=== PATIENT | female | born 2000 | race Caucasian/White ===

== ENCOUNTER 2019-08-27 11:57 | Outpatient (REF) | payer BC, SELFPAY ==
--- NOTE | 2019-08-27 11:00 | PAPFT_PTH ---
PATIENT: Gilda Pinzon LOC: [facility] U#:[id number] AGE/SX: 19/F ROOM: RE08/27/[address]: JUAN ALBERTO Jacob : 2000 BED: DIS: 08/27/2019 SPEC #: [id number] RECD: 08/27/19 13:03 STATUS: SERGIO SANTIZO #: [id number] KIMMY: 08/27/19 11:[address]: Cookie Han DEPT: [facility] Cytology RECD BY: Heide Rodriguez Tissues: 1 - CX/ENDOCX FOR PAP SMEARS Procedures: PAP THIN PREP/UVM Screening Comments: [id number] (CHLAMYDIA/GC)
[2019-08-28 13:46] LABS: Chlamydia Result Negative; GC Result Negative; Specimen Description SEE COMMENTS
== END 2019-08-27 12:17 ==
LOC: LBN 11:57
PROVIDERS: PCP Nurse Practitioner Family; Visit Provider Nurse Practitioner Family
DX: Z11.3 Encounter for screening for infections with a predominantly sexual mode of transmission (principal); Z12.4 Encounter for screening for malignant neoplasm of cervix; Z11.51 Encounter for screening for human papillomavirus (HPV)
CPT/HCPCS: 87491; 87591; 88142

== ENCOUNTER 2020-08-15 17:01 | Emergency (ER) | payer MEDICAID, SELFPAY ==
--- NOTE | 2020-08-15 17:02 | W.ED.GENAD ---
Discharge Plan Disposition Patient Disposition: HOME Condition: Good Discharge Details Clinical Impression: Constipation, Hypokalemia Primary Care Provider: Cookie Han ED Provider: Siomara Dunbar Home Meds and New Rx's Prescriptions: Continued montelukast 10 mg tablet 10 mg PO QHS Qty: 90 RF: 4 fluticasone propionate [Allergy Relief (fluticasone)] 50 mcg/actuation spray,suspension 2 spray JAY DAILY PRN (Reason: allergy symptoms) Qty: 19.8 RF: 4 Nexplanon 68 mg implant 1 implant SBD ONCE RF: 0 cholecalciferol (vitamin D3) 1,000 unit capsule 1,000 unit PO DAILY Qty: 90 RF: 4 albuterol sulfate [ProAir HFA] 90 mcg/actuation HFA aerosol inhaler 2 puff Inhalation Q4H PRN PRN (Reason: shortness of breath or wheezing) Qty: 18 RF: 4 Flovent HFA 12 GM HFA aerosol inhaler 2 puff Inhalation BID Qty: 1 RF: 12 hydroxyzine HCl 25 mg tablet 25 - 50 mg PO TID PRN (Reason: anxiety) Qty: 90 RF: 4 sertraline 100 mg tablet 100 mg PO DAILY Qty: 90 RF: 4 trazodone 50 mg tablet 50 - 100 mg PO HS Qty: 180 RF: 4 loratadine 10 mg tablet 10 mg PO DAILY PRN (Reason: allergy symptoms) Qty: 90 RF: 4 Discharge Instructions Instructions: Constipation (ED), Hypokalemia (ED) Additional Instructions: Encourage water intake. Please use Miralax to help with constipation. Please follow directions listed on bottle. Only use imodium if you develop diarrhea. Please take your medications as prescribed. Please reach out to [facility] human services tomorrow to discuss counseling options [phone]. Please take your second potassium dosing night prior to bed. Please take this with food. Please increase your potassium rich foods, information attached. If you develop increased pain, fever/chills, inability hydrated, blood in your stool or new/worsening symptoms please seek care urgently once again. Otherwise, please follow-up with primary care in 1 week for reevaluation. Referrals: Cookie Han, ABBY [Primary Care Provider] - Medical Decision Making Patient is a 20 year old female, accompanied by mother, with c/c of lower abdominal pain assicoated with constipation.She states her last normal bowel movement was 48 hours ago. Had a soft BM at 0100 today. States she then took imodium. Reports she often suffers from diarrhea and uses Imodium for this. However, she denies diarrhea today. She denies any fevers or chills. No previous abdominal surgeries. Denies any blood in her stool. Denies any vaginal discharge. Denies any dysuria, increased frequency urgency of urination. Reports otherwise she is feeling quite anxious. She reports that the change in bowel habits seems to have aggravated her chronic anxiety. This is G not using her anxiety medications today. She reports that each time she tries to have a bowel movement, she has a anxiety attack. On exam, patient is resting comfortably. She does intermittently become quite anxious and can be tearful when discussing her bowel habits. No CVA tenderness. Her abdomen is benign. No tenderness elicited with palpation. Labs reviewed. Significant for hypokalemia potassium of 3.1. We will replenish this orally. She has had minimal intake today secondary to her anxiety, will give 20 mg now and sent home with another 20 to be taken at home. Patient has mild leukocytosis white count of 11. Her abdomen is not consistent with any active infection such as appendicitis, diverticuliti. Her pain is not consistent with ovarian torsion. Very generalized low central pain inconsistent with gynecologic issue. Patient I discussed the home regimen. We also discussed her anxiety. I feel that treatment more aggressively for her anxiety would be most appropriate as it seems to be what is driving her presentation here today. She does not see a counselor currently. I have referred her to [facility] and asked that she call them tomorrow to discuss counseling options. In regard to bowel regimen, I did advise that she not try to medicate too quickly and allow things to take her course. I did encourage water intake as this may be playing into why she feels constipated at this point. We will discuss appropriate usage of medications and when to use these. Return precautions were discussed. Advise follow-up with primary care if not improved over the next week. All of her questions and concerns were addressed and she is agreement this plan. HPI General Mode of arrival: ambulatory. Date/Time Provider Initiated Documentation: 08/15/20 17:02. Limitations to Documentation: no limitations. Information obtained by: patient, family (mother) and RN notes reviewed. History of Present Illness 20 year old F presents to the emergency department with the chief complaint of constipation, described as moderate and similar to prior episodes, with intensity rated at 5. Quality is described as aching, and is localized to the abdomen. Patient reports no radiation. Patient started experiencing this hour(s) (started at 0100 today) and it has been constant. No relieving factors improve symptom(s), No exacerbating factors reported . Patient notes other (anxiety); denies chest pain, diaphoresis, fever/chills, loss of appetite, nausea/vomiting and rash. Patient did receive the following treatments prior to arrival, other (immodium) Related Data Home Medications Medication Instructions Recorded Confirmed Flovent HFA 2 puff INHALATION BID #1 inhaler 05/28/17 01/11/20 cholecalciferol (vitamin D3) 25 1,000 unit PO DAILY #90 cap 08/25/18 01/11/20 mcg (1,000 unit) capsule albuterol sulfate 90 mcg/actuation 2 puff INHALATION Q4H PRN PRN #18 08/28/18 01/11/20 aerosol inhaler gm hydroxyzine HCl 25 mg tablet 25 - 50 mg PO TID PRN #90 tab 08/25/19 08/15/20 etonogestrel 68 mg subdermal 1 implant SBD ONCE each 08/27/19 01/11/20 implant fluticasone propionate 50 2 spray JAY DAILY PRN #19.8 ml 08/27/19 01/11/20 mcg/actuation nasal spray,suspension montelukast 10 mg tablet 10 mg PO QHS #90 tab 08/27/19 08/15/20 sertraline 100 mg tablet 100 mg PO DAILY #90 tab 11/26/19 08/15/20 trazodone 50 mg tablet 50 - 100 mg PO HS #180 tab 04/13/20 08/15/20 loratadine 10 mg tablet 10 mg PO DAILY PRN #90 tab 05/30/20 08/15/20 Previous Rx's Medication Instructions Recorded cholecalciferol (vitamin D3) 25 1,000 unit PO DAILY #90 cap 08/25/18 mcg (1,000 unit) capsule albuterol sulfate 90 mcg/actuation 2 puff INHALATION Q4H PRN PRN #18 08/28/18 aerosol inhaler gm hydroxyzine HCl 25 mg tablet 25 - 50 mg PO TID PRN #90 tab 08/25/19 fluticasone propionate 50 2 spray JAY DAILY PRN #19.8 ml 08/27/19 mcg/actuation nasal spray,suspension montelukast 10 mg tablet 10 mg PO QHS #90 tab 08/27/19 sertraline 100 mg tablet 100 mg PO DAILY #90 tab 11/26/19 trazodone 50 mg tablet 50 - 100 mg PO HS #180 tab 04/13/20 loratadine 10 mg tablet 10 mg PO DAILY PRN #90 tab 05/30/20 Allergies Allergy/AdvReac Type Severity Reaction Status Date / Time No Known Allergies Allergy Verified 08/15/20 17:09 Review of Systems Constitutional Constitutional: Reports as per HPI, Denies chills, Denies fatigue, Denies fever(s) and Denies headache(s) ENT Ears, Nose, Mouth, and Throat: Denies headache(s) Cardiovascular Cardiovascular: Reports as per HPI, Denies chest pain and Denies dyspnea Respiratory Respiratory: Reports as per HPI, Denies cough and Denies dyspnea Gastrointestinal Gastrointestinal: Reports as per HPI Musculoskeletal Musculoskeletal: Reports as per HPI and Denies back pain Integumentary/Breasts Skin/Breast: Reports as per HPI and Denies rash Neurologic Neurologic: Reports as per HPI and Denies headache(s) Psychiatric Psychiatric: Reports anxiety Endocrine Endocrine: Denies fatigue [facility] Medical History (Updated 08/15/20 @ 18:09 by JOAO Crandall) Allergic rhinitis Depressive disorder Generalized anxiety disorder GERD (gastroesophageal reflux disease) Mild persistent asthma Nexplanon in place Inserted 08/05/19 into left upper arm Surgical History S/P wisdom tooth extraction (~2017) Family History Mother Depression Hyperlipidemia GERD (gastroesophageal reflux disease) Asthma Anxiety Father Depression Anxiety Brother Depression Anxiety ADHD Maternal Grandfather , of unknown type of cancer Neoplasm Alcohol abuse Maternal Grandmother Alcohol abuse Asthma Depression Anxiety Hyperlipidemia Heart disease Paternal Grandfather No problems noted. Paternal Grandmother No problems noted. Social History Smoking/Tobacco Use Status: Former Tobacco Use Second Hand Exposure: Yes Alcohol Intake: never Drug use: Socially Substance use type: marijuana Caregiver/Support person: Yes Household members: significant other and family Housing: house Communication Needs: None Do you need help understanding health information?: Rarely current occupation: [employer] Pets and animals: Yes Pets and animals: cat(s), dog(s) and farm animals Sexually active: Yes Do you think of yourself as: bisexual Current gender identity: female What is your relationship status?: refused to answer How often do you talk on the phone with friends or family?: twice per week How often do you get together with friends or relatives?: never How often do you attend episcopalian or moravian services?: decline to answer Do you belong to any clubs or organized social groups?: no Panel score (0-1 are the most socially isolated patients): 0 What type of physical activity do you participate in: none Guadlaupe/Roman Catholic: None Special guadalupe needs: No Seatbelt use: always Helmet use: Yes Helmet use: always Drive intox or ride w/intox 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 Do you feel safe at home: Yes Do you feel safe in your relationship?: Yes Female Reproductive History Menstrual control method: implanted (Nexplanon implant left arm inserted 08/05/19) History History 0 Para Hx # Term Pregnancies Multiple births Hx # Pregnancies Ectopic pregnancies AB induced Hx Number of Living Children AB spontaneous Exam Const General: cooperative, healthy appearing, comfortable, no acute distress, well developed and anxious Nutritional Appearance: average body habitus and well nourished Orientation: alert and awake HENNE Head: normal to inspection Mouth: moist mucous membranes Resp Effort & Inspection: normal respiratory effort, able to speak in complete sentences and no respiratory distress Auscultation: clear to auscultation bilaterally, no rales, no rhonchi and no wheezes Cardio Rate: regular rate Rhythm: regular rhythm Heart Sounds: S1 normal and S2 normal GI Inspection: normal to inspection Palpation: soft, no hepatosplenomegaly, no guarding, no hernias, no masses and nontender Percussion: normal to percussion Auscultation: normal bowel sounds Back/Spine/Pelvis Back: no CVA tenderness Skin General skin exam: no rashes or lesions noted Trauma: no lacerations or abrasions Neuro General: patient alert and patient awake Cognition: normal cognition Speech: speech normal Gait: normal gait Psych Appearance: grossly normal and well kempt Mental Status: mental status grossly normal Speech and Movement: speech and movement normal Mood: anxious mood (tearing)
[2020-08-15 17:03] VITALS: BP 130/86; PULSE 95; RESP 16; TEMP 36.6; O2SAT 98
[2020-08-15 17:31] LABS: Abs Immature Grans 0.02 10^3/uL (0.0-0.06); Absolute Basophil Count 0.05 10^3/uL (0.0-0.2); Absolute Eosinophil Count 0.22 10^3/uL (0.0-0.7); Absolute Monocyte Count 0.78 10^3/uL (0.1-0.8); Absolute Neutrophil Count 7.78 10^3/uL (1.2-6.7); Basophils % 0.4; Eosinophils % 1.9; HCT 46.3 % (36.0-46.0); HGB 15.8 g/dL (11.2-15.7); Immature Grans % 0.2; Lymphocytes % 24.7; MCH 31.2 pg (27.0-33.0); MCHC 34.1 % (32.0-36.0); MCV 91.5 fL (80-95); MPV 10.2 fL (8.0-11.0); Monocytes % 6.6; Neutrophils % 66.2; Nucleated RBC 0 %; Platelet Count 298 10^3/uL (130-400); RBC 5.06 10^6/uL (3.93-5.22); RDW 12.7 % (11.7-14.6); RDW-SD 42.8 fL; WBC 11.75 10^3/uL (4.4-10.8)
[2020-08-15] MEDS: LORazepam 2 MG/ML VIAL 0.5 MG IVP ×2 (17:35→18:17)
[2020-08-15] MEDS: Lactated Ringers 1,000 ML 1000 ML IV (17:35)
[2020-08-15 17:53] LABS: ALT 20 U/L (14-59); AST 14 U/L (15-37); Albumin 4.4 g/dL (3.4-5.0); Alkaline Phosphatase 89 U/L (46-116); Anion Gap 10.2 mmol/L (3-11); BUN 8 mg/dL (7-18); Bilirubin, Total 0.4 mg/dL (0.2-1.0); CO2 25.8 mmol/L (21.0-32.0); CREATININE 0.75 mg/dL (0.55-1.02); Calcium 9.2 mg/dL (8.5-10.1); Chloride 103 mmol/L (98-107); Glucose 96 mg/dL (74-106); Potassium 3.1 mmol/L (3.5-5.1); Sodium 139 mmol/L (136-145); Total Protein 7.9 g/dL (6.4-8.2)
[2020-08-15] MEDS: Potassium Chloride 20 MEQ TABCR 40 MEQ PO (18:16)
[2020-08-15] MEDS: Normal Saline Flush 10 ML SYR IVP (18:17)
[2020-08-15 18:26] LABS: Bilirubin Negative (Negative); Blood Negative (Negative); Clarity Clear (Clear); Glucose Negative (Negative); Ketones Trace mg/dL (Negative); Leukocyte Esterase Negative (Negative); Nitrite Negative (Negative); Urobilinogen 0.2 EU/dL (Up TO 0.2)
[2020-08-15 18:28] VITALS: BP 124/72; PULSE 84; RESP 20; TEMP 37; O2SAT 99
[2020-08-15 18:35] VITALS: BP 124/72; PULSE 84; RESP 20; TEMP 37; O2SAT 99
== END 2020-08-15 18:40 | disposition home or self-care (01) ==
PROVIDERS: Emergency Provider Physician Assistant; PCP Nurse Practitioner Family
DX: E87.6 Hypokalemia (principal); K59.00 Constipation, unspecified; F41.8 Other specified anxiety disorders
CPT/HCPCS: 36415; 80053; 81025; 96361; 96374; 96376; 99284; 81003; 85025; J2060

== ENCOUNTER 2021-08-23 16:33 | Outpatient (REF) | payer MEDICAID, SELFPAY ==
[2021-08-25 16:01] LABS: Chlamydia Result Negative (Negative); GC Result Negative (Negative)
== END 2021-08-23 16:34 | disposition home or self-care (01) ==
LOC: LBN 16:33
PROVIDERS: PCP Nurse Practitioner Family; Visit Provider Obstetrics & Gynecology Gynecology
DX: Z11.3 Encounter for screening for infections with a predominantly sexual mode of transmission (principal)
CPT/HCPCS: 87491; 87591

== ENCOUNTER 2022-08-20 06:21 | Day surgery (SDC) | payer MEDICAID, SELFPAY ==
[2022-08-20] VITALS (9 sets, daily range): BP systolic 112–125; BP diastolic 67–91; PULSE 69–96; RESP 14–18; TEMP 36.3–37.8; O2SAT 98–100; BMI 27.1
--- NOTE | 2022-08-20 06:23 | W.ANESPRE ---
General Info Date of Service Date Performed: 08/20/22 Height: 5 ft 0.5 in Weight: 63.957 kg Body Mass Index (BMI): 27.1 Surgical Procedure: Operation Date: 08/20/22 07:40 Proposed Procedure Side Surgeon p Tonsillectomy & Adenoidectomy Jason Rogers MD Meds Allergies and Home Medications Allergies Allergy/AdvReac Type Severity Reaction Status Date / Time No Known Allergies Allergy Verified 08/17/22 11:34 Home Medication Medication Instructions Recorded fluticasone propionate 110 2 puff inhalation BID ##1 05/28/17 mcg/actuation HFA aerosol inhaler (Flovent HFA) fluticasone propionate 50 2 spray intranasal DAILY PRN 08/27/19 mcg/actuation nasal allergy symptoms #19.8 mL spray,suspension (Allergy Relief (fluticasone)) trazodone 50 mg tablet 50 - 100 mg PO HS #180 tabs 04/13/20 hydroxyzine HCl 25 mg tablet 25 - 50 mg PO TID PRN anxiety #90 08/17/20 tabs sertraline 100 mg tablet 100 mg PO DAILY #90 tabs 09/02/20 montelukast 10 mg tablet 10 mg PO QHS #90 tabs 12/14/20 albuterol sulfate 90 mcg/actuation 2 puff inhalation Q4H PRN PRN 03/29/21 aerosol inhaler (ProAir HFA) shortness of breath or wheezing #18 grams levonorgestrel 17.5 mcg/24 hrs 1 device intrauterine ONCE #1 ea 08/23/21 (5yrs) 19.5mg intrauterine device (Kyleena) loratadine 10 mg tablet 10 mg PO DAILY PRN allergy 01/17/22 symptoms #90 tabs inhalational spacing device #1 ea 04/12/22 (BreatheRite MDI Spacer) acetaminophen 500 mg tablet 1,000 mg 08/20/22 (Tylenol Extra Strength) ibuprofen 400 mg tablet 400 mg 08/20/22 Current Visit Medications: Current Medications Generic Name Dose Route Start Last Admin Trade Name Freq PRN Reason Stop Dose Admin Ringer's Solution 1,000 mls @ 80 mls/hr 08/20/22 06:00 IV 09/16/22 23:59 INFUSION OSITO Cefazolin Sodium/Dextrose 2 gm in 50 mls @ 100 mls/hr 08/20/22 06:00 Ancef Duplex IVPB 09/16/22 23:59 PREOP OSITO Tranexamic Acid 640 mg/ Sodium 56.4 mls @ 338.4 mls/hr 08/20/22 06:00 Chloride IVPB 08/20/22 23:59 PREOP OSITO IV Miscellaneous Supplies 1 each 08/20/22 06:00 Iv Access IV 09/16/22 23:59 DIRECTED OSITO Sodium Chloride 0 ml 08/20/22 06:00 Normal Saline Flush 10 Ml Syr IV 09/16/22 23:59 PRN PRN Sodium Chloride 0 ml 08/20/22 06:00 Normal Saline 10 Ml Vial IJ 09/16/22 23:59 DIRECTED PRN Sterile Water 0 ml 08/20/22 06:00 Water,Injection,Sterile 10 Ml Vial IJ 09/16/22 23:59 DIRECTED PRN PFSH Active Problems Active Problems: Problem Status Onset Code Chronic tonsillitis J35.01 Tonsil stone J35.8 Sore throat J02.9 IUD (intrauterine device) in place Z97.5 De Quervain's disease (tenosynovitis) M65.4 Mild persistent asthma J45.30 Allergic rhinitis J30.9 GERD (gastroesophageal reflux disease) K21.9 Depressive disorder F32.9 Generalized anxiety disorder F41.1 Medical History Medical History (Updated 08/20/22 @ 06:51 by Doreen Sheridan) Abnormal uterine bleeding (AUB) 02/28/2021. He is lasting 4 to 5 weeks while using Nexplanon. Rx for combination OCPs x1 month. History of seasonal allergies History of seasonal allergies Surgical History Surgical History S/P wisdom tooth extraction (~2016) Tobacco Smoking/Tobacco Use Status: Never Passive smoking exposure: Yes Second hand exposure: Yes Alcohol Alcohol Intake: never Substance Use Substance use: Current Sobriety Substance use type: former substance user and marijuana Prental History History 0 Para Hx # Term Pregnancies Multiple births Hx # Pregnancies Ectopic pregnancies AB induced Hx Number of Living Children AB spontaneous Vital Signs and Lab Results Vital Signs Most Recent Vital Signs in EMR: Temp Pulse Resp BP Pulse Ox 36.5 C 96 H 16 120/85 98 08/20/22 06:38 08/20/22 06:38 08/20/22 06:38 08/20/22 06:38 08/20/22 06:38 Lab Results Blood Type / Crossmatch: No Data to Display Complete Blood Count: No Data to Display Complete Metabolic Panel: No Data to Display Liver Function Panel: No Data to Display Coagulation Panel: No Data to Display Cardiac Panel: No Data to Display Arterial Blood Gas: No Data to Display Venous Blood Gas: No Data to Display Pancreas Panel: No Data to Display Thyroid Panel: No Data to Display Infectious Disease: No Data to Display Blood Cultures: No Data to Display Toxicology Panel: No Data to Display Panel: No Data to Display Anesthesia Assessment and Plan Anesthesia History Personal History: No History of Anesthesia Complications Family History: No Family History of Anesthesia Complications Exercise Tolerance Exercise Tolerance: Metabolic Equivalents>4 Cardiac & Pulmonary Exam Cardiac Exam: Normal S1/S2 Heart Sounds Pulmonary Exam: Clear Bilateral Breath Sounds Implantable Cardiac Device Does patient have a Pacemaker or an ICD?: No Airway Exam Known Difficult Airway: No Mallampati Class: 2 Mouth Opening: Normal (> 3cm) Thyromental Distance: Greater than 3 cm Neck Range of Motion: Full ROM Neck Circumference: Normal Teeth Condition: Normal Dentition ASA Classification ASA Score: ASA 2 Emergency Case?: No NPO Status NPO Status: NPO Clears >2 hours, Solids >8 hours Status Status: Negative HCG Anesthesia Plan Resuscitation Status: Full Code Anesthesia Technique: General Anesthesia Airway Planned: Endotracheal Tube Monitors Used: Standard Monitors Preoperative Comments:: 22 yo female for T/A. Sig PMHx: GERD, depression/anxiety, asthma (albuterol/flovent), never smoker/EtOH. Denies complications with anesthesia in the past, but that she wakes up crying frequently.
[2022-08-20] MEDS: Lactated Ringers 1,000 ML 80 ML IV (07:15)
[2022-08-20] MEDS: ceFAZolin 2 GM/50 ML BAG IVPB (07:29)
--- NOTE | 2022-08-20 07:48 | TONSIL_PTH ---
PATIENT: Gilda Pinzon LOC: [facility] U#:[id number] AGE/SX: 22/F ROOM: RE08/20/[address]: Jason Rogers MD : 2000 BED: DIS: 08/20/2022 SPEC #: [id number] RECD: 08/20/22 12:23 STATUS: SERGIO REQ #: [id number] KIMMY: 08/20/22 07:[address]: Jason Rogers DEPT: Surgical Specimen RECD BY: Heide Rodriguez ENTERED: 08/20/22 12:24 SP TYPE: TONSIL OTHR DR: JUAN ALBERTO Jacob Tissues: 1 - TONSIL AGE 17 & OVER 2 - TONSIL AGE 17 & OVER Procedures: GROSS AND MICRO LEVEL 3 Comments: [id number]
[2022-08-20] MEDS: Bupivacaine 0.5% Pres-Free W/EPI 30 ML VIAL (07:54)
--- NOTE | 2022-08-20 08:09 | PDOC.DSDIS_ITS ---
Date of service: 08/20/22 Time of Service: 08:10 Discharge Plan Disposition Patient Disposition: HOME Condition: Good Discharge Details Reason For Visit: Tonsillectomy Attending Provider: Jason Rogers Primary Care Provider: Cookie Han Home Meds and New Rx's Prescriptions: No Action fluticasone propionate [Allergy Relief (fluticasone)] 50 mcg/actuation spray,suspension 2 spray JAY DAILY PRN (Reason: allergy symptoms) Qty: 19.8 4RF Rx Instructions: 2 sprays each nostril once a day as needed for allergies Kyleena 17.5 mcg/24 hrs (5 yrs) 19.5 mg intrauterine device 1 device intrauterine ONCE Qty: 1 0RF Label Comments: pt. reports currently in place Rx Instructions: as a single dose (DME) BreatheRite MDI Spacer Spacer See Rx Instructions .Route Qty: 1 2RF Rx Instructions: As directed fluticasone propionate [Flovent HFA] 12 GM HFA aerosol inhaler 2 puff Inhalation BID Qty: 1 trazodone 50 mg tablet 50 - 100 mg PO HS Qty: 180 4RF hydroxyzine HCl 25 mg tablet 25 - 50 mg PO TID PRN (Reason: anxiety) Qty: 90 4RF sertraline 100 mg tablet 100 mg PO DAILY Qty: 90 4RF Rx Instructions: Take 1 tablet once a day montelukast 10 mg tablet 10 mg PO QHS Qty: 90 4RF Rx Instructions: Take 1 tablet once a day albuterol sulfate [ProAir HFA] 90 mcg/actuation HFA aerosol inhaler 2 puff Inhalation Q4H PRN PRN (Reason: shortness of breath or wheezing) Qty: 18 4RF loratadine 10 mg tablet 10 mg PO DAILY PRN (Reason: allergy symptoms) Qty: 90 4RF acetaminophen [Tylenol Extra Strength] 500 mg Tablet 1,000 mg ibuprofen 400 mg Tablet 400 mg Discharge Instructions Stand Alone Forms: ENT-T+A Instr. Peter Referrals: Jason Rogers MD [ [facility] STAFF PHYSICIAN] - (1 month, please call for appointment prior to patient's departure) Discharge Orders Discharge Orders: Discharge Order (Routine); Ordered 08/20/22 Ordered By: Jason Rogers
--- NOTE | 2022-08-20 08:10 | W.PM.OP ---
Date of service: 08/20/22 Time of Service: 08:10 Operative Note Operative Note PRE-OP DIAGNOSIS: Chronic tonsillitis with tonsillolith formation POST-OP DIAGNOSIS: same PROCEDURE: Tonsillectomy SURGEON: Jason Rogers ANESTHESIA TYPE: General LMA/ETT Refer to Anesthesia Record ESTIMATED BLOOD LOSS: 10 PATHOLOGY: other (Tonsils) COMPLICATIONS: None Patient was transported to: PACU Patient's condition: stable Indications: Patient with the above problems. This is proven medically recalcitrant and chronic. Options were explained to the patient regarding further management. She elected to undergo the above procedure. Risks and benefits as well as the operative and postoperative courses were reviewed in detail multiple times. Risks of narcotics were also discussed at length and in detail. H&P was reviewed. There have been no changes. Findings: 3+ tonsils with copious cryptic debris, significant scar issue around the tonsils. Adenoids atrophic and without debris Procedure Description: After obtaining an adequate level of general endotracheal anesthesia the patient was positioned in a supine position and prepped and draped in appropriate fashion. A En Donte mouthgag was carefully introduced into the oral cavity and opened to reveal a soft and hard palate which were examined revealing no evidence of an occult cleft palate. Each tonsil was pulled medially and posteriorly and 0.5% Marcaine with 1 200,000 epinephrine was injected into the submucosal plane around the tonsil. A 12 blade was then used to incise mucosa along the anterior, superior, and posterior edges of the tonsil and then a Kyle elevator used to disarticulate the tonsil from the superior tonsillar fossa. A Rivera blade was then used to strip the tonsil free from the tonsillar fossa down to the inferior pole at which point time a tonsillar snare was used to amputate the tonsil from the tonsillar fossa. Electrocautery suction tip catheter set on 15 W coagulation was then used to achieve relative hemostasis within the tonsillar bed. Once this had been accomplished bilaterally the En-Donte mouthgag was relaxed and reopened revealing no further bleeding. Valsalva was performed revealing no further bleeding. The patient was then awakened and extubated by anesthesia and taken the recovery room in stable condition. I was present throughout the entire case.
[2022-08-20] MEDS: HYDROmorphone 2 MG/ML SYR IVP ×2 (08:36→08:52)
[2022-08-20] MEDS: Normal Saline 10 ML VIAL IJ (08:37)
--- NOTE | 2022-08-20 08:43 | W.ANESPOSTOP ---
Postoperative Evaluation Date, Time and Location Date Performed: 08/20/22 Time Performed: 08:44 Patient Location: PACU Vital Signs Most Recent Imported Vital Signs: Most Recent Vital Signs Temp Pulse Resp BP Pulse Ox 37.1 C 78 14 113/77 100 08/20/22 08:37 08/20/22 08:37 08/20/22 08:37 08/20/22 08:37 08/20/22 08:37 Pain Score Most Recent Pain Score: Most Recent Pain Score Pain Level 6 08/20/22 08:37 Assessment Mental Status: Awake (Alert & Oriented to Patient Baseline) Airway and Respiratory Function: Patent airway with normal (patient baseline) respiratory exam Cardiovascular Function: Hemodynamically Stable Hydration Status: Adequately Hydrated Nausea & Vomiting: No Nausea or Vomiting Pain: Pain is tolerable per patient Peripheral Nerve Block: Patient did not receive a nerve block
[2022-08-20] MEDS: Ibuprofen 600 MG TAB PO (09:22)
== END 2022-08-20 10:35 | disposition home or self-care (01) ==
PROVIDERS: PCP Nurse Practitioner Family; Visit Provider Otolaryngology
PROC: (CPT 42826; principal; 2022-08-20 07:30)
DX: J35.01 Chronic tonsillitis (principal); J35.8 Other chronic diseases of tonsils and adenoids
CPT/HCPCS: 42826; 81025; 88304; J0131; J0690; J1100; J1170; J2405; J2704

== ENCOUNTER 2023-11-02 13:52 | Outpatient (REF) | payer MEDICAID, SELFPAY ==
--- NOTE | 2023-11-02 09:40 | PAPFT_PTH ---
PATIENT: Gilda Pinzon LOC: [facility] U#:[id number] AGE/SX: 23/F ROOM: RE11/02/[address]: Adiel Granados DNP : 2000 BED: DIS: 11/02/2023 SPEC #: [id number] RECD: 11/04/23 17:55 STATUS: SERGIO REDavi #: [id number] KIMMY: 11/02/23 09:[address]: Adiel Gramajo DEPT: [facility] Cytology RECD BY: Heide Rodriguez Tissues: 1 - CX/ENDOCX FOR PAP SMEARS Procedures: PAP THIN PREP/UVM Screening Comments: [id number]
== END 2023-11-02 13:53 | disposition home or self-care (01) ==
LOC: LBN 13:52
PROVIDERS: PCP Nurse Practitioner Family; Visit Provider Nurse Practitioner Family
DX: Z12.4 Encounter for screening for malignant neoplasm of cervix (principal)
CPT/HCPCS: 88142

== ENCOUNTER 2024-07-14 19:00 | Emergency (ER) | payer MEDICAID, SELFPAY ==
[2024-07-14 19:24] VITALS: BP 109/72; PULSE 85; RESP 20; TEMP 36.8; O2SAT 97
--- NOTE | 2024-07-14 19:47 | ED.GENADUL_ITS ---
Discharge Plan Disposition Patient Disposition: Home Condition: Stable Discharge Details Clinical Impression: COVID-19, Constipation Primary Care Provider: Adiel Gramajo ED Provider: Jacklyn Cade Home Meds and New Rx's Prescriptions: New polyethylene glycol 3350 [Miralax] 17 gram/dose powder 17 g PO BID 5 Days Qty: 170 0RF Rx Instructions: Mavis x-ray powder packet in 8 ounces of fluid twice daily as needed until bowel movement produced. Once bowel has been 3 days please stop. No Action Kyleena 17.5 mcg/24 hrs (5 yrs) 19.5 mg intrauterine device 1 device intrauterine ONCE Qty: 1 0RF Patient Comments: pt. reports currently in place Rx Instructions: as a single dose (DME) BreatheRite MDI Spacer Spacer See Rx Instructions .Route Qty: 1 2RF Rx Instructions: As directed montelukast 10 mg tablet 10 mg PO QHS Qty: 90 4RF Rx Instructions: Take 1 tablet once a day escitalopram oxalate 10 mg tablet 10 mg PO DAILY Qty: 90 4RF fluticasone propionate [Flovent HFA] 12 GM HFA aerosol inhaler 2 puff Inhalation BID Qty: 1 loratadine 10 mg tablet 10 mg PO DAILY PRN (Reason: allergy symptoms) Qty: 90 3RF hydroxyzine HCl 25 mg tablet 25 - 50 mg PO TID PRN (Reason: anxiety) Qty: 90 4RF albuterol sulfate 90 mcg/actuation HFA aerosol inhaler 2 puff Inhalation Q4H PRN PRN (Reason: shortness of breath or wheezing) Qty: 8.5 4RF acetaminophen [Tylenol Extra Strength] 500 mg Tablet 1,000 mg ibuprofen 400 mg Tablet 400 mg PO PRN Discharge Instructions Instructions: COVID-19 ED, Constipation, Adult ED, Lowering the risk of spreading infection Additional Instructions: Your swab is positive for COVID. Please continue quarantining per CDC guidelines. Please take [id number] multivitamin which includes zinc. Vitamin D. And vitamin C. Please take the MiraLAX as prescribed. You may also try prune juice, prunes increased water. Follow up with primary care provider in 3-5 days. Return to ED sooner if any worsening or concerns. Please take Tylenol or Ibuprofen with food every 4-6 hours as needed for pain and swelling. Referrals: Adiel Gramajo NP [Primary Care Provider] - 2 weeks Discharge Data Discharge Date/Time-TO BE ENTERED AT DEPARTURE: 07/14/24 21:24 HPI General Mode of arrival: ambulatory . Date/Time Provider Initiated Documentation: 07/14/24 19:33 . Limitations to Documentation: no limitations . Information obtained by: patient, RN notes reviewed and old records reviewed . HPI Narrative: 23 year old female presents to the ER with cc of constipation x 4 days, URI type symptoms sore throat cough. She also notes headache. She reports ear pain with coughing and dizziness. She does have a history of seasonal allergies, chronic tonsillitis. She reports that it she has not tried anything for the constipa tion at home. Related Data Home Medications ?Medication ?Instructions ?Recorded ?Confirmed fluticasone propionate 110 2 puff inhalation BID ##1 05/28/17 07/14/24 mcg/actuation HFA aerosol inhaler (Flovent HFA) levonorgestrel 17.5 mcg/24 hr (up 1 device intrauterine ONCE #1 ea 08/23/21 07/14/24 to 5 yrs) 19.5mg intrauterine device (Kyleena) inhalational spacing device #1 ea 04/12/22 07/14/24 (BreatheRite MDI Spacer) acetaminophen 500 mg tablet 1,000 mg 08/20/22 11/30/23 (Tylenol Extra Strength) ibuprofen 400 mg tablet 400 mg PO PRN 08/20/22 07/14/24 loratadine 10 mg tablet 10 mg PO DAILY PRN allergy 04/17/23 07/14/24 symptoms #90 tabs montelukast 10 mg tablet 10 mg PO QHS #90 tabs 10/19/23 07/14/24 hydroxyzine HCl 25 mg tablet 25 - 50 mg (1 - 2 x 25 mg) PO TID 11/04/23 07/14/24 PRN anxiety #90 tabs escitalopram oxalate 10 mg tablet 10 mg PO DAILY #90 tabs 11/30/23 07/14/24 albuterol sulfate 90 mcg/actuation 2 puff inhalation Q4H PRN PRN 07/08/24 07/14/24 aerosol inhaler shortness of breath or wheezing #8.5 grams polyethylene glycol 3350 17 17 g PO BID Constipation 5 days 09/17/24 gram/dose oral powder (Miralax) #170 grams Previous Rx's ?Medication ?Instructions ?Recorded levonorgestrel 17.5 mcg/24 hr (up 1 device intrauterine ONCE #1 ea 08/23/21 to 5 yrs) 19.5mg intrauterine device (Kyleena) inhalational spacing device #1 ea 04/12/22 (BreatheRite MDI Spacer) loratadine 10 mg tablet 10 mg PO DAILY PRN allergy 04/17/23 symptoms #90 tabs montelukast 10 mg tablet 10 mg PO QHS #90 tabs 10/19/23 hydroxyzine HCl 25 mg tablet 25 - 50 mg (1 - 2 x 25 mg) PO TID 11/04/23 PRN anxiety #90 tabs escitalopram oxalate 10 mg tablet 10 mg PO DAILY #90 tabs 11/30/23 albuterol sulfate 90 mcg/actuation 2 puff inhalation Q4H PRN PRN 07/08/24 aerosol inhaler shortness of breath or wheezing #8.5 grams polyethylene glycol 3350 17 17 g PO BID Constipation 5 days 07/14/24 gram/dose oral powder (Miralax) #170 grams Allergies Allergy/AdvReac Type Severity Reaction Status Date / Time No Known Allergies Allergy Verified 07/14/24 19:26 General Stated Complaint: RespSymp STEPHANIE: 3 Review of Systems All systems reviewed & are unremarkable except as noted in HPI and below Constitutional Constitutional: Reports as per HPI and Reports headache(s) ENT Ears, Nose, Mouth, and Throat: Reports headache(s) Respiratory Respiratory: Reports chest congestion and Reports cough Gastrointestinal Gastrointestinal: Reports constipation Neurologic Neurologic: Reports headache(s) Exam Narrative Exam Narrative: Constitutional: Alert and oriented x3. Appears stated age. Normal body habitus. Head: Normocephalic, no trauma. Eyes: Pupils PERRL, Red reflex noted, EOM's intact. Eyelids symmetrical without lesions, discharge, or swelling. ENT: Bilateral TM's WNL, External ear normal to inspection, no mastoid TTP, swelling, or erythema, Nasal turbinates WNL, no nasal discharge. Normal dentition, Posterior pharynx WNL, no exudate. Chest: RRR, Normal S1, S2, distal pulses intact. Resp: Lungs clear to auscultation bilaterally, no wheezes, rales, or rhonchi. Abdomen: Soft, non-distended, Normoactive bowel sounds all 4 quads. Musculoskeletal: Normal gait, Moves all 4 extremities without difficulty. Skin: No suspicious rashes or lesions. Capillary refill less than 2 sec. Neurologic: Cranial nerves II-XII intact. Alert and oriented x 3. Motor: No deficits noted. Sensory: Intact bilaterally all 4 extremities. Hematologic/Lymphatic: No ecchymosis, no lymphadenopathy. Course Vital Signs Vital signs: Vital Signs Temperature 36.8 C 07/14/24 19:24 Pulse 85 07/14/24 19:24 Respiratory Rate 20 07/14/24 19:24 Blood Pressure 109/72 07/14/24 19:24 Pulse Oximetry 97 07/14/24 19:24 Temperature 36.8 C 07/14/24 19:24 Pulse 85 07/14/24 19:24 Respiratory Rate 20 07/14/24 19:24 Blood Pressure 109/72 07/14/24 19:24 Blood Pressure Position Sitting 07/14/24 19:24 Pulse Oximetry 97 07/14/24 19:24 Oxygen Delivery Method Room Air 07/14/24 19:24 Oxygen Flow Rate 0 07/14/24 19:24 Pain Level 0 07/14/24 19:24 Medical Decision Making 23 year old female presents to the ER with cc of constipation x 4 days, URI type symptoms sore throat cough. She also notes headache. She reports ear pain with coughing and dizziness. She does have a history of seasonal allergies, chronic tonsillitis. She reports that it she has not tried anything for the constipation at home. Lungs are clear to auscultation bilaterally, Fluvid swab ordered. COVID-positive. Will discharge home with home care and quarantine instructions. Will also give MiraLAX. This text was generated using u[employer] dictation system, please disregard any oddities of phrase or misspellings. Lab Data Lab results reviewed: Yes I reviewed the patient's lab results. Labs: Laboratory Tests Range/Units 07/14/24 19:45 COVID-19 Source Nasopharynx SARS-CoV-2 (PCR) (Negative) Positive A Influenza Type A (PCR) (Negative) Negative Influenza Type B (PCR) (Negative) Negative RSV (PCR) (Negative) Negative Quality:SDOH Health Related Social Needs: Health related social needs inadequate housing Health related social needs details N/A PFS All Active Problems (Updated 07/14/24 @ 20:55 by Jacklyn Cade NP) Constipation (Acute) COVID-19 (Acute) Urinary frequency (Acute) Right wrist pain (Acute) Generalized anxiety disorder (Chronic) Depressive disorder (Chronic) GERD (gastroesophageal reflux disease) (Chronic) Allergic rhinitis (Chronic) Mild persistent asthma (Chronic) De Quervain's disease (tenosynovitis) (Acute) IUD (intrauterine device) in place (Acute) Medical History History of seasonal allergies History of seasonal allergies Chronic tonsillitis Tonsil stone Sore throat Abnormal uterine bleeding (AUB) 02/28/2021. He is lasting 4 to 5 weeks while using Nexplanon. Rx for combination OCPs x1 month. Surgical History Hx of tonsillectomy 08/20/2022 S/P wisdom tooth extraction (~2017) Family History Mother Depression Hyperlipidemia GERD (gastroesophageal reflux disease) Asthma Anxiety Father Depression Anxiety Brother Depression Anxiety ADHD Maternal Grandfather , of unknown type of cancer Neoplasm Alcohol abuse Maternal Grandmother Alcohol abuse Asthma Depression Anxiety Hyperlipidemia Heart disease Paternal Grandfather No problems noted. Paternal Grandmother No problems noted. Social History Smoking/Tobacco Use Status: Never Second Hand Exposure: Yes Smoking risk assessment performed?: Yes Alcohol Intake: never Drug use: Current Sobriety Substance use type: former substance user and marijuana Details: pt. reports 4 months since using anything Caregiver/Support person: Yes Household members: significant other and family Housing: house Communication Needs: None Do you need help understanding health information?: Rarely current occupation: Unemployed. Lives with her parents. Pets and animals: Yes (Yorkie/Doug Tzu mix. Basil) Pets and animals: cat(s), dog(s) and farm animals Sexually active: Yes Do you think of yourself as: bisexual Current gender identity: female What is your relationship status?: refused to answer How often do you talk on the phone with friends or family?: twice per week How often do you get together with friends or relatives?: never How often do you attend yazdanism or yazidism services?: decline to answer Do you belong to any clubs or organized social groups?: no Panel score (0-1 are the most socially isolated patients): 0 What type of physical activity do you participate in: none Guadalupe/Pentecostal: None Special guadalupe needs: No Seatbelt use: always Helmet use: Yes Helmet use: always Drive intox or ride w/intox trencher driver: No Do you feel safe at home: Yes Do you feel safe in your relationship?: Yes Female Reproductive History Menstrual control method: implanted History History 0 Para Hx # Term Pregnancies Multiple births Hx # Pregnancies Ectopic pregnancies AB induced Hx Number of Living Children AB spontaneous
[2024-07-14 19:58] VITALS: BP 106/68; PULSE 86; RESP 14; O2SAT 100
[2024-07-14 20:30] LABS: Influenza A PCR Negative (Negative); Influenza B PCR Negative (Negative); RSV PCR Negative (Negative)
[2024-07-14 20:34] LABS: COVID-19 PCR Positive (Negative); Source Nasopharynx
[2024-07-14 21:08] VITALS: BP 127/79; PULSE 89; RESP 20; O2SAT 98
[2024-07-14] MEDS: Albuterol HFA 8 GM 60 PUFF INH IH (21:28)
[2024-07-14] MEDS: Benzonatate 100 MG CAP PO ×2 (21:29)
== END 2024-07-14 21:24 | disposition home or self-care (01) ==
PROVIDERS: Emergency Provider Registered Nurse Emergency; PCP Nurse Practitioner Family
DX: U07.1 COVID-19 (principal); K59.00 Constipation, unspecified
CPT/HCPCS: 87637; 99283